=== PATIENT | female | born 1935 | race Caucasian/White ===

== ENCOUNTER 2017-01-28 08:45 | Day surgery (SDC) | payer MEDICARE, OTHER ==
--- NOTE | 2017-01-24 09:28 | HP ---
CC: Dr. Roni Saunders; Dr. Otto, Department of Urology, [facility] in [place]. * HISTORY AND PHYSICAL: DATE OF PLANNED ADMISSION/SURGERY: 01/28/17 HISTORY OF PRESENT ILLNESS: Mrs. Aldana is an 81-year-old white female who is admitted with suspicious urine cytologies for work-up with cystoscopy, multiple bladder biopsies, right retrograde pyelography and washings. Mrs. 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 At that time, she had a CT urogram, which showed normal right kidney and ureter. Also she had a right retrograde pyelography and washings from the right ureter and the washings were all negative. In June 2016, she underwent a left nephroureterectomy by Dr. Otto at the [facility]. 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 The lymph nodes; however, were all negative. The patient did very well postoperatively. She presented recently for a cystoscopy. She has been totally asymptomatic, having no flank pain and no voiding symptoms. Cystoscopy in the office was negative showing no suspicious bladder lesions. Urine cytologies, however, were suspicious, showing atypical and suspicious cells for malignancy. Because of that finding, the patient is admitted for the above procedure. PAST MEDICAL HISTORY AND SYSTEM REVIEW: The patient has type 2 diabetes mellitus for which she is maintained on Januvia 100 mg daily and glipizide 10 mg daily. She is hypertensive, on lisinopril-HCTZ 20-12.5 mg daily and on metoprolol 50 mg daily. She has hyperlipidemia and is on simvastatin 40 mg daily. She has GERD, on Prilosec 20 mg daily. The patient has a past history of breast carcinoma. She has done very well and has had no recurrent disease. She was evaluated a week ago for her yearly visit by Dr. Saunders and there was no evidence of recurrent disease. The patient had a total knee replacement by Dr. Byrnes in 2011. At that time, she had a full Cardiology evaluation including a coronary angiogram and no abnormalities were noted. She has been asymptomatic from her heart. ALLERGIES: The patient reports being allergic to PENICILLINS and CEPHALOSPORINS , both of them gives her hives. SOCIAL HISTORY: She is a nonsmoker. PHYSICAL EXAMINATION GENERAL: Moderately overweight, otherwise healthy-looking white female. VITAL SIGNS: Blood pressure 140/90. HEART: Regular and rhythmic. No murmurs. LUNGS: Clear. ABDOMEN: Soft. No masses, no tenderness, and no CVA tenderness. IMPRESSION: 1. History of urothelial carcinoma, status post left nephroureterectomy for high- grade noninvasive transitional cell carcinoma in June 2016. 2. Suspicious urine cytologies on recent work up, with negative cystoscopy. 3. Diabetes mellitus, hypertension, past history of breast carcinoma. PLAN: The plan is for work-up of the suspicious urine cytologies with cystoscopy and multiple bladder biopsies and with right retrograde pyelography and washings. I discussed the above plans in detail with the patient. All her questions were answered. [id number]/[facility] #: [id number] MTDBill
[~2017-01-28 08:45] MED LIST: Buffered Lidocaine 0.9% SYRIN* 5 ML/SYR SYRINGE INTRADERM ONE; Buffered Lidocaine 0.9% SYRIN* 5 ML/SYR SYRINGE ONE; Levofloxacin 750 MG IVPREMIX(* 750 MG/150 ML BAG ONE
[2017-01-28] MEDS ORDERED: fentaNYL* 50 MCG/ML 2 ML VIAL (100 MCG VIAL) ONE ×3 (11:09→14:29)
[2017-01-28] MEDS ORDERED: Midazolam* 1 MG/ML 2 ML VIAL (2 MG) ONE ×2 (11:13→11:26)
[2017-01-28] MEDS ORDERED: Chloroprocaine 2%* 20 ML VIAL ONE (11:13)
[2017-01-28] MEDS ORDERED: Iohexol 180 (CONTRAST) 10 ML SDV IV ONE ×2 (11:44→16:37)
--- NOTE | 2017-01-28 12:45 | RAD ---
CPT II Codes: 6045F INDICATION: Right nephroureteral contrast study during biopsy TECHNIQUE: Intraoperative fluoroscopy was provided during right-sided nephrostogram and biopsy. FINDINGS: 4 spot films depict contrast filling the proximal right ureter and right renal collecting system. On image 2 there are lobular filling defects at the ureteropelvic junction questionably sustained during later imaging.. Fluoroscopy time: 39 seconds IMPRESSION: As above.
[2017-01-28] MEDS: fentaNYL* 50 MCG/ML 2 ML VIAL (100 MCG VIAL) IV PRN ×4 (13:12→15:27)
[2017-01-28] MEDS ORDERED: Oxybutynin TAB* 5 MG ONE ×2 (13:17→17:24)
[2017-01-28] MEDS ORDERED: oxyCODONE/Acetamin 5/325 MG* TAB ONE ×2 (13:39)
[2017-01-28] MEDS ORDERED: Furosemide IV* 10 MG/ML 2 ML VIAL (20 MG) ONE (17:17)
[2017-01-28] MEDS ORDERED: Ondansetron INJ* 2 MG/ML VIAL ONE (17:24)
[2017-01-28] MEDS ORDERED: DiMENhydriNATE IV* 50 MG/ML VIAL ONE (17:25)
[2017-01-28] MEDS ORDERED: DiMENhydriNATE IV* 50 MG/ML VIAL IV PUSH PRN (17:26)
[2017-01-28] MEDS ORDERED: Ondansetron INJ* 2 MG/ML VIAL IV PRN (17:27)
[2017-01-28 18:56] VITALS: BP 103/81
--- NOTE | 2017-01-29 05:31 | OP ---
CC: Dr. Otto, Department of Urology, [facility] * DATE OF OPERATION: 01/28/17 - [facility] DATE OF : 37 SURGEON: Roman Warner MD ANESTHESIOLOGIST: Avni Overton MD ANESTHESIA: Spinal. PRE-OP DIAGNOSES: 1. History of urothelial carcinoma. 2. Status post left nephroureterectomy. 3. Suspicious urine cytology. POST-OP DIAGNOSES: 1. History of urothelial carcinoma. 2. Status post left nephroureterectomy. 3. Pending cytology and pathology. OPERATIVE PROCEDURE: 1. Cystoscopy. 2. Bladder washings. 3. Right retrograde pyelography and washings from right renal pelvis and right ureter. 4. Multiple bladder biopsies and fulguration. INDICATIONS: Ms. Aldana is an 81-year-old white female, who in Jun 2016 underwent a left nephroureterectomy for high-grade noninvasive localized urothelial carcinoma involving the left ureter and renal pelvis. She has done well postoperatively. Recent cystoscopy showed no obvious tumor but the cytologies were atypical and one of them was suspicious for transitional cell carcinoma. Because of the above history and finding, the patient is admitted for the above procedure. PATHOLOGY AT CYSTOSCOPY: There was a slight edema and irregularity of the mucosa in the area of the left trigone at the site of the ureterectomy. There were no papillary lesions seen. There was as expected absence of the left orifice. The right ureteral orifice looked normal. The rest of the bladder wall looked normal and there were no suspicious bladder lesions seen. There were no papillary lesions and no areas to suggest carcinoma in situ. Right retrograde pyelography showed no abnormal filling defects or irregularity of the ureteral lumen or the collecting system. DESCRIPTION OF PROCEDURE: After successful spinal anesthesia, the patient was placed in the lithotomy position and was prepped and draped for cystoscopy. Cystoscopy was performed and above findings were noted. A Barth catheter was placed inside the bladder. The bladder was then irrigated with saline and washings were sent for cytology. Cystoscopy was performed. A flexible-dip guidewire was positioned in the area of the distal right ureter. A size 5-Serbian open-ended catheter was positioned in the distal ureter. Retrograde pyelography was performed demonstrating the whole ureter and the collecting system. The guidewire was then introduced all the way inside the renal pelvis and the open- ended catheter was positioned in the renal pelvis. Washings were obtained from the renal pelvis. The catheter was then gently withdrawn and additional washings were obtained from the whole length of the ureter. The washings were sent for cytology. Using the rigid biopsy forceps, several biopsies were obtained from the left base of the bladder in the area where the mucosa looked slightly irregular. The specimens were sent and labeled separately. The sites of the biopsies were then fulgurated with Bugbee electrode achieving very good hemostasis. Additional random biopsies were obtained from the rest of the bladder. The sites of the biopsies were also fulgurated. At the completion of the procedure, there was very good hemostasis. There was no evidence of any bladder perforation. The right ureteral orifice looked intact , and non edematous. There was good drainage of contrast from the Rt kidney. The scope was removed and size 16-Serbian Barth catheter was passed inside the bladder and balloon inflated with 10 cc of water. The patient tolerated the procedure well and left the operating room in good condition. [id number]/[facility] #: [id number] NGUYEN
== END 2017-01-28 19:40 | disposition home or self-care (01) ==
LOC: OR 08:45
PROVIDERS: ATTEND Urology
DX: D09.0 Carcinoma in situ of bladder (principal); E11.9 Type 2 diabetes mellitus without complications; Z79.84 Long term (current) use of oral hypoglycemic drugs; I10 Essential (primary) hypertension; Z85.3 Personal history of malignant neoplasm of breast
CPT/HCPCS: 74420; 88112; 88305; A9270-GY; J1240; J1940; J2250; J2400; J2405; J3010

== ENCOUNTER 2018-07-13 11:37 | Emergency (ER) | payer MEDICARE, OTHER ==
--- NOTE | 2018-07-13 14:03 | ED ---
Lower Extremity - HPI Summary HPI Summary: Patient is an 82-year-old female who presents to the ED with left lateral foot injury after twisting the foot at approximately 6 AM. She denies any other lower extremity pain. She was able to ambulate following the accident, however with moderate amount of pain. She did ice and elevate the extremity. Small amount of bruising, redness and swelling to the left lateral side of the left foot. Denies any numbness or tingling. - History of Current Complaint Chief Complaint: EDExtremityLower Stated Complaint: LEFT FOOT PAIN Time Seen by Provider: 07/13/18 12:03 Hx Obtained From: Patient Mechanism Of Injury: Twisted Onset of Pain: Hours Onset/Duration: Hours Severity Initially: Moderate Severity Currently: Moderate Pain Intensity: 0 Pain Scale Used: 0-10 Numeric Timing: Constant Location: Is Discrete @ - left lateral foot pain Associated Signs And Symptoms: Positive: Swelling, Bruising. Negative: Redness Aggravating Factor(s): Standing, Ambulation Alleviating Factor(s): Rest Able to Bear Weight: No - Risk Factors Gout Risk Factors: Negative DVT Risk Factors: Negative Septic Arthritis Risk Factor: Negative - Allergies/Home Medications Allergies/Adverse Reactions: Allergies Allergy/AdvReac Type Severity Reaction Status Date / Time amoxicillin Allergy Severe Hives Verified 11/22/17 08:44 morphine Allergy Severe Nausea Verified 11/22/17 08:44 Cephalosporins Allergy Mild Hives Verified 11/22/17 08:44 ENVIRONMENTAL/SEASONAL Allergy Intermediate STUFFINESS Uncoded 11/22/17 08:44 HAYFEVER PMH/Surg Hx/FS Hx/Imm Hx Previously Healthy: Yes Endocrine/Hematology History: Reports: Hx Diabetes Denies: Hx Thyroid Disease, Hx Anemia Cardiovascular History: Reports: Hx Coronary Artery Disease - cholesterol - control with meds, Hx Hypertension - on meds, Other Cardiovascular Problems/ Disorders - hyperlipidemia Denies: Hx Congestive Heart Failure, Hx Peripheral Vascular Disease Respiratory History: Denies: Hx Asthma, Hx Bronchopulmonary Dysplasia, Hx Chronic Bronchitis, Hx Chronic Obstructive Pulmonary Disease (COPD), Hx Cystic Fibrosis, Hx Lung Cancer , Hx Pleural Effusion, Hx Pneumonia, Hx Pulmonary Edema, Hx Pulmonary Embolism, Hx Seasonal Allergies, Hx Sleep Apnea GI History: Reports: Hx Gastroesophageal Reflux Disease, Hx Irritable Bowel, Other GI Disorders - HX OF PROBLEM WITH FOOD GOING DOWN IN THE PAST 5+ YRS AG- NO PROBLEMS SINCE Denies: Hx Jaundice History: Reports: Hx Kidney Stones, Hx Renal Disease - pt has 2 ureters on the left side, 1 on the right, Other Problems/Disorders - h/o bladder ca Musculoskeletal History: Reports: Hx Arthritis - bilateral knees, Hx Back Problems - lumbar surgery, Other Musculoskeletal History - bilateral knee replacement Denies: Hx Rheumatoid Arthritis - OA, Hx Osteoporosis Sensory History: Reports: Hx Contacts or Glasses - for reading Denies: Hx Cataracts, Hx Eye Injury, Hx Eye Prosthesis, Hx Glaucoma, Hx Macular Degeneration, Hx Vision Problem, Hx Deafness, Hx Hearing Aid, Hx Hearing Problem, Other Sensory Impairments Opthamlomology History: Reports: Hx Contacts or Glasses - for reading Denies: Hx Cataracts, Hx Eye Injury, Hx Eye Prosthesis, Hx Glaucoma, Hx Macular Degeneration, Hx Vision Problem, Other Sensory Impairments Neurological History: Denies: Hx Dementia, Hx Developmental Delay, Hx Headaches, Hx Migraine, Hx Seizures, Hx Spinal Cord Injury, Hx Transient Ischemic Attacks (TIA), Other Neuro Impairments/Disorders Psychiatric History: Denies: Hx Anxiety, Hx Depression - Cancer History Cancer Type, Location and Year: bladder Hx Chemotherapy: Yes - not infuson ,for bladder, radiation on breast cancer Hx Radiation Therapy: Yes - BREAST - Surgical History Surgery Procedure, Year, and Place: l breast lumpectomy 2007 Dr. gagnon,bladder biopsie x3-2009,2010, 2011,2016,sinus 2012l rotator cuff 09/2001,hysterectomy, back surgery [facility] 35 years ago ,ok knee replacemnts 2011, left urteter bx, kidney removed [facility] Hx Anesthesia Reactions: No - Immunization History Hx Pertussis Vaccination: No Immunizations Up to Date: Yes - or Infectious Disease History: No Infectious Disease History: Denies: Hx Clostridium Difficile, Hx Hepatitis, Hx Human Immunodeficiency Virus (HIV), Hx Shingles, Hx Tuberculosis, Traveled Outside the [place] in Last 30 Days - Social History Occupation: Unemployed Lives: With Family Alcohol Use: Occasionally Substance Use Type: Reports: None Hx Tobacco Use: No Smoking Status (MU): Never Smoked Tobacco Review of Systems Negative: Fever, Chills, Fatigue, Skin Diaphoresis Negative: Palpitations, Chest Pain Negative: Shortness Of Breath, Cough Genitourinary: Negative Positive: no symptoms reported, see HPI Positive: Arthralgia - left lateral foot pain Positive: Bruising Neurological: Negative All Other Systems Reviewed And Are Negative: Yes Physical Exam Triage Information Reviewed: Yes Vital Signs On Initial Exam: Initial Vitals Temp Pulse Resp BP Pulse Ox 97.6 F 90 14 123/70 97 07/13/18 11:49 07/13/18 11:49 07/13/18 11:49 07/13/18 11:49 07/13/18 11:49 Vital Signs Reviewed: Yes Appearance: Positive: Well-Appearing, Well-Nourished Skin: Positive: Warm, Skin Color Reflects Adequate Perfusion Head/Face: Positive: Normal Head/Face Inspection Eyes: Positive: EOMI, JERMAINE, Conjunctiva Clear Neck: Positive: No Lymphadenopathy Respiratory/Lung Sounds: Positive: Breath Sounds Present Cardiovascular: Positive: RRR Musculoskeletal: Positive: Pain @ - left lateral foot pain with ecchymosis Neurological: Positive: Speech Normal Psychiatric: Positive: Normal, Affect/Mood Appropriate AVPU Assessment: Alert Diagnostics - Vital Signs Vital Signs Temp Pulse Resp BP Pulse Ox 07/13/18 11:49 97.6 F 90 14 123/70 97 - Laboratory Lab Statement: Any lab studies that have been ordered have been reviewed, and results considered in the medical decision making process. Lower Extremity Course/Dx - Course Course Of Treatment: Patient is evaluated for L foot injury after twisting the foot this morning. she states he had a cramp in her left foot this morning and when trying to stretch the foot out, she twisted the foot and immediately left lateral foot pain, swelling and bruising occurred. She was able to weight-bear following, however endorses a mild to moderate amount of discomfort. She is unable to take ibuprofen, however she did ice this area this morning. The injury occurred approximately at 6 AM, but she comes to the ED approximately at noon for further assessment of a fracture. She denies any pain to the left lower extremity otherwise. Shes never injured the left foot before, however she has had a double knee replacement by Dr. Byrnes. X-ray obtained which shows fracture that is nondisplaced to the base of the fifth metatarsal. Dela Cruz fracture. Discussed treatment options with patient. As normally patient is placed in a posterior walking splint with crutches, however due to age and instability, CamBoot is given. She is to remain close to non-weight bearing as possible and use her cane and walker for ambulation. She will also elevate and ice and follow up with Dr. Byrnes in 2-3 days. - Diagnoses Provider Diagnoses: Dela Cruz fracture Discharge - Sign-Out/Discharge Documenting (check all that apply): Patient Departure - Discharge Plan Condition: Stable Disposition: HOME Patient Education Materials: Foot Fracture in Adults (ED) Referrals: Carlo Byrnes MD [Medical Doctor] - Tyree Cortes MD [Primary Care Provider] - Additional Instructions: Please follow up with ortho in the next 2-3 days if possible Elevate Ice Try to remain non-weight bearing as much as possible Cam boot for any ambulation Use walker or cane for ambulation - Billing Disposition and Condition Condition: STABLE Disposition: Home
[2018-07-13 14:42] VITALS: BP 115/88
== END 2018-07-13 14:40 | disposition home or self-care (01) ==
LOC: ED 11:37
DX: S92.812A Other fracture of left foot, initial encounter for closed fracture (principal); X58.XXXA Exposure to other specified factors, initial encounter; Y92.9 Unspecified place or not applicable; E11.9 Type 2 diabetes mellitus without complications
CPT/HCPCS: 99282

== ENCOUNTER → 2019-03-13 10:28 | Day surgery (SDC) | payer MEDICARE, OTHER ==
[~2019-03-13 10:28] MED LIST changes: +Acetaminophen TAB* 325 MG ONE; +Bacitracin OINTMENT* 0.5% 0.5 oz TUBE ONE; -Buffered Lidocaine 0.9% SYRIN* 5 ML/SYR SYRINGE INTRADERM ONE; -Buffered Lidocaine 0.9% SYRIN* 5 ML/SYR SYRINGE ONE; +Buffered Lidocaine 1% SYRIN* 1 ML/SYRINGE INTRADERM ONE; +Dexamethasone IV* 4 MG/ML 1 ML (4 MG) ONE; +Famotidine IV* 10 MG/ML 2 ML (20 mg) IV ONE; +Famotidine IV* 10 MG/ML 2 ML (20 mg) ONE; +Ibuprofen TAB* 400 MG ONE; +Lactated Ringers 1000 ML Bag* 1,000 ML IV SCH; -Levofloxacin 750 MG IVPREMIX(* 750 MG/150 ML BAG ONE; +Lidocaine 1% w EPI 1:100,000* MDV 20 ML VIAL ONE; +Lidocaine 2% MPF* 2 ML VIAL ONE; +Lidocaine 4% TOPICAL* 50 ML TOP.SOLN ONE; +Midazolam* 1 MG/ML 5 ML VIAL (5 MG) ONE; +Naloxone* 0.4 MG/ML 1 ML VIAL IV PRN; +Ondansetron INJ* 2 MG/ML VIAL IV PRN; +Ondansetron INJ* 2 MG/ML VIAL ONE; +Oxymetazoline 0.05% NASAL SPR* 15 ML BTL ONE; +Phenylephrine 40 MCG/ML SYRINGE ONE; +Propofol* 10 MG/ML 20 ML BTL ONE; +fentaNYL* 50 MCG/ML 2 ML VIAL (100 MCG VIAL) ONE
[2019-03-13] MEDS: fentaNYL* 50 MCG/ML 2 ML VIAL (100 MCG VIAL) IV PRN ×2 (16:51→17:00)
[2019-03-13 17:45] VITALS: BP 160/74
--- NOTE | 2019-03-13 21:04 | OP ---
DATE OF OPERATION: 03/13/19 [facility] DATE OF : 37. ATTENDING SURGEON: Eduar Kemp MD. ASSISTANT TECHNICIAN: None. ANESTHESIA: General. 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 OPERATIVE PROCEDURE: Endoscopic resection of right nasal polyp. ESTIMATED BLOOD LOSS: Less than 20 cc. SPECIMENS: Right nasal polyp, which was resected piecemeal and placed in formalin for permanent section. DETAILS OF PROCEDURE: This is an 83-year-old woman, who has had problems with sinus issues in the past, who presented with progressive right nasal airway obstruction. She was found to have a large polyp in the posterior nasal cavity completely obstructing the choana. CT scan revealed an intact skull base with what appeared to be a polyp in the sphenoethmoidal recess and some obstruction of the sphenoid sinus with evidence of sphenoid sinusitis. The decision was made to bring the patient to the operating room to remove the polyp and reestablish sphenoid sinus ventilation. DESCRIPTION OF PROCEDURE: The patient was brought to the operating room, general anesthesia was induced, and an oral endotracheal tube was placed. The patient was draped and a time-out was performed. The patient had been previously given Afrin in the holding area. Additional Afrin and 4% lidocaine- soaked pledgets were placed into the right nasal cavity, 1% lidocaine with 1:100 ,000 epinephrine was infiltrated into the inferior turbinate, middle turbinate, and head of the superior turbinate as well as the polyp itself. Nasal endoscopy revealed a large polypoid mass filling the posterior nasal cavity extending into the nasopharynx, which appeared to be pedicled on the inferior aspect of the right superior turbinate. The polyp was removed. It was too large to be removed through the nasal cavity intact and so was removed piecemeal. The inferior edge of the superior turbinate, which is where the polyp had risen from, was then resected with a straight through cutting forceps. The sphenoid sinus ostium was then inspected. It did appear to be patent, was filled with thick mucin which was removed with a Gonzalez tip suction. The bleeding edge of the superior turbinate was then controlled with a small amount of fibrillar packing. The patient was then returned to the care of the anesthesiologist, extubated, and delivered to the PACU in stable condition. [id number]/[facility] #: [id number] NGUYEN
== END | disposition home or self-care (01) ==
LOC: OR 10:28
PROVIDERS: ATTEND Otolaryngology
DX: C30.0 Malignant neoplasm of nasal cavity (principal); J33.0 Polyp of nasal cavity; J32.3 Chronic sphenoidal sinusitis; E11.9 Type 2 diabetes mellitus without complications; Z79.84 Long term (current) use of oral hypoglycemic drugs; Z79.4 Long term (current) use of insulin; I10 Essential (primary) hypertension; J30.89 Other allergic rhinitis; E78.00 Pure hypercholesterolemia, unspecified; K21.9 Gastro-esophageal reflux disease without esophagitis; Z85.3 Personal history of malignant neoplasm of breast; M19.90 Unspecified osteoarthritis, unspecified site
CPT/HCPCS: 88304; 88341; 88342; 88360; 88365; A9270-GY; J1100; J2250; J2405; J2704; J3010